=== PATIENT | female | born 1985 ===

== ENCOUNTER 2022-03-09 08:44 | Outpatient (CLI) | payer OTHER | END 2022-03-09 09:45 | disposition home or self-care (01) | LOC: PRENATAL 08:44 | PROVIDERS: ATTEND Obstetrics & Gynecology Maternal & Fetal Medicine | DX: O36.80X0 Pregnancy with inconclusive fetal viability, not applicable or unspecified (principal); O09.529 Supervision of elderly multigravida, unspecified trimester; O99.280 Endocrine, nutritional and metabolic diseases complicating pregnancy, unspecified trimester; Z36 Encounter for antenatal screening of mother; O09.819 Supervision of pregnancy resulting from assisted reproductive technology, unspecified trimester; O99.210 Obesity complicating pregnancy, unspecified trimester; Z3A.13 13 weeks gestation of pregnancy ==

== ENCOUNTER 2022-05-07 13:00 | Outpatient (CLI) | payer OTHER | END 2022-05-07 14:59 | disposition home or self-care (01) | LOC: PRENATAL 13:00 | PROVIDERS: ATTEND Obstetrics & Gynecology Maternal & Fetal Medicine | DX: O35.3XX0 Maternal care for (suspected) damage to fetus from viral disease in mother, not applicable or unspecified (principal); O09.529 Supervision of elderly multigravida, unspecified trimester; O99.280 Endocrine, nutritional and metabolic diseases complicating pregnancy, unspecified trimester; O09.819 Supervision of pregnancy resulting from assisted reproductive technology, unspecified trimester; O99.210 Obesity complicating pregnancy, unspecified trimester; Z3A.21 21 weeks gestation of pregnancy ==

== ENCOUNTER 2022-07-19 12:41 | Outpatient (CLI) | payer OTHER | END 2022-07-19 14:47 | disposition home or self-care (01) | LOC: PRENATAL 12:41 | PROVIDERS: ATTEND Obstetrics & Gynecology Maternal & Fetal Medicine | DX: O26.849 Uterine size-date discrepancy, unspecified trimester (principal); O09.529 Supervision of elderly multigravida, unspecified trimester; O99.210 Obesity complicating pregnancy, unspecified trimester; O36.8199 Decreased fetal movements, unspecified trimester, other fetus; O09.819 Supervision of pregnancy resulting from assisted reproductive technology, unspecified trimester; Z3A.32 32 weeks gestation of pregnancy ==

== ENCOUNTER 2022-08-19 21:35 | Inpatient (IN) | payer OTHER ==
[~2022-08-19] VITALS: Ht 121.9 cm; Wt 2.7 kg
[2022-08-23] MEDS ORDERED: METFORMIN HCL500 M4 (08:36)
[2022-08-23] MEDS ORDERED: LEVOTHYROXINE112 MCG (08:36)
[2022-08-23] MEDS ORDERED: PANTOPRAZOLE SO20 MG (08:36)
[2022-08-23] MEDS ORDERED: HUMULIN N100 UNIT/2 (08:36)
== END 2022-08-23 14:47 | disposition home or self-care (01) | DRG 787 ==
LOC: OB/GYN 21:35 → LDR 21:35 → OB/GYN 08-20 15:18
PROVIDERS: ADMIT Student in an Organized Health Care Education/Training Program; ATTEND Student in an Organized Health Care Education/Training Program
PROC: 4A1HXCZ Monitoring of Products of Conception, Cardiac Rate, External Approach (ICD-10-PCS; 2022-08-19)
PROC: 10D00Z1 Extraction of Products of Conception, Low, Open Approach (ICD-10-PCS; principal; 2022-08-20 14:00)
DX: O14.04 Mild to moderate pre-eclampsia, complicating childbirth (principal); O41.03X0 Oligohydramnios, third trimester, not applicable or unspecified; O60.14X0 Preterm labor third trimester with preterm delivery third trimester, not applicable or unspecified; O99.214 Obesity complicating childbirth; E66.8 Other obesity; O24.424 Gestational diabetes mellitus in childbirth, insulin controlled; Z3A.36 36 weeks gestation of pregnancy; Z37.0 Single live birth